=== PATIENT | female | born 1965 | race Hispanic/Latino ===

== ENCOUNTER 2017-11-06 09:41 | Day surgery (SDC) | payer BC ==
[~2017-11-06] VITALS: Ht 180.3 cm; Wt 87.3 kg
[~2017-11-06 09:41] MED LIST: SODIUM CHLORIDE 0.9% 1000ML 1,000 ML IV ONE
[2017-11-06 10:06] VITALS: BP 131/90
[2017-11-06] MEDS ORDERED: MV-M1CAP18 PO (10:18)
[2017-11-06] MEDS ORDERED: PROPOFOL 10 MG/ML 20ML VIAL IV ONE (10:33)
[2017-11-06 10:52] VITALS: BP 99/60
== END 2017-11-06 11:40 | disposition home or self-care (01) ==
LOC: DAH 09:41
PROVIDERS: ATTEND Internal Medicine Gastroenterology
DX: Z12.11 Encounter for screening for malignant neoplasm of colon (principal); Z68.38 Body mass index [BMI] 38.0-38.9, adult; Z98.890 Other specified postprocedural states
CPT/HCPCS: 45378; A4606; J2704; J7030